=== PATIENT | female | born 1930 | race Caucasian/White ===

== ENCOUNTER → 2016-07-09 | Outpatient (CLI) | payer OTHER, BC | LOC: MOB LAB 12:48 | PROVIDERS: ATTEND Physician Assistant | DX: R30.0 Dysuria (principal); N30.21 Other chronic cystitis with hematuria; R82.99 Other abnormal findings in urine | CPT/HCPCS: 81002; 87077; 87088; 87186 ×2; 99213; G0463 ==

== ENCOUNTER → 2016-07-14 | Outpatient (CLI) | payer OTHER, BC ==
--- NOTE | 2016-07-14 15:15 | DI ---
History: Recurrent urinary tract infection. Procedure: Study performed without contrast from the heart to the pubic symphysis. Dose: CTDI 11.1, D LP 512.2 Findings: Lung bases unremarkable. Bone window settings show spondylosis but no focal lytic or blasti c lesion. Prior cholecystectomy. Daniela lobe of the liver. Left hepatic lobe is very small. Pancreas normal. Spleen normal. No evidence of adenopathy. Both adrenal glands normal. Right kidney is nonobstructive but does contain a stone image 38/139, 4 x 3 mm. Left kidney contains an elongated stone, 4 x 6 mm, image 37/139. Molly the pelvis, there are numerous phleboliths. Bladder normal. Postmenopausal partially calcified uterus. No evidence of bladder stone. No hernia identified. Progressed numerous colonic diverticula a re identified without evidence of inflammation. Impression: Each kidney contains one stone without evidence of obstruction. Stone such as this was no t large may be a source of urinary tract infection. No evidence of renal mass or obstruction. Normal appearing bladder Partially calcified postmenopausal uterus Numerous colonic diverticula without evidence of inflammation. Daniela lobe of the liver. Prior cholecystectomy
== END ==
LOC: CT 13:15
PROVIDERS: ATTEND Urology
DX: N39.0 Urinary tract infection, site not specified (principal); N20.0 Calculus of kidney
CPT/HCPCS: 74176